=== PATIENT | female | born 1985 | race Caucasian/White ===

== ENCOUNTER 2016-07-25 01:52 | Emergency (ER) | payer OTHER ==
[~2016-07-25] VITALS: Ht 154.9 cm; Wt 82.6 kg
[~2016-07-25 01:52] MED LIST: ADDERALL15 MG PO; AMOXICILLIN875 MG PO; AUGMENTIN875 MG PO; BACTRIM,SEPT1 TABLET PO; BENADRYL50 MG PO; CARAFATE100 MG/ML PO; CEPHALEXIN500 MG PO; CLONAZEPAM0.5 MG PO; CLONIDINE HCL0.1 MG PO; FLUOXETINE HCL20 MG PO; GABAPENTIN100 MG PO; KEFLEX500 MG PO; KLONOPIN1 MG PO; MACROBID100 MG PO; METHADONE10 MG PO; METHADONE10 MG/1 M1 PO; METHADOSE40 MG PO; MOTRIN600 MG PO; MOTRIN800 MG PO; Motrin PO; NAPROSYN500 MG PO; NEURONTIN100 MG PO; NORCO 5/3251 TABLET PO; PAXIL20 MG PO; PEN-VEE K,VEET500 MG PO; PERIDEX1 ML MM; PROMETHAZINE HC25 M1 PO; QUETIAPINE FUM300 MG PO; QUETIAPINE FUMA50 MG PO; SEROQUEL100 MG PO; SEROQUEL300 MG PO; TORADOL10 MG PO; TRAMADOL HCL50 MG PO; TRIPLE ANTIB28.35 GM TP; ULTRAM50 MG PO; ZOFRAN ODT8 MG PO; ZOFRAN4 MG PO; ZOLOFT100 MG PO; ZOLOFT25 MG PO; ZOLPIDEM TARTRAT5 MG PO
[2016-07-25 03:20] LABS: MCH 29.2 PG (29.0-34.0); MCHC 33.6 G/DL (30.0-36.0); MEAN PLAT.VOLUME 11.4 uM^3 (9.5-12.4); PLATELET COUNT 207 K/uL (156-360); RBC DIS.WIDTH-CV 14.7 % (11.8-14.6); RBC DIS.WIDTH-SD 46.6 % (39-53); RED BLOOD COUNT 4.83 M/uL (3.80-5.20); WHITE BLOOD COUNT 9.1 K/uL (4.1-10.2)
[2016-07-25 03:29] LABS: CHLORIDE 107 mEq/L (99-109); SODIUM 143 mEq/L (136-147)
[2016-07-25 03:31] LABS: GLUCOSE 95 mg/dL (70-99)
[2016-07-25 03:32] LABS: ANION GAP 15 MEQ/L (2-14)
[2016-07-25 03:33] LABS: TOTAL BILIRUBIN 0.4 mg/dL (0.0-1.0)
[2016-07-25 03:34] LABS: ALKALINE PHOSPHATASE 95 IU/L (3-129)
[2016-07-25 03:35] LABS: GFR ESTIMATE (CALCULATED) > 59 mL/min/
[2016-07-25 03:36] LABS: UREA NITROGEN (BUN) 9 mg/dL (9-23)
[2016-07-25 03:38] LABS: LIPASE 10 U/L (1.0-51.0)
[2016-07-25 04:04] LABS: INFLUENZA A VIRAL ANTIGEN NEGATIVE; INFLUENZA B VIRAL ANTIGEN NEGATIVE
[2016-07-25 04:54] LABS: ADD MIUA? YES; BILIRUBIN NEGATIVE; BLOOD SMALL; COLOR YELLOW ((YELLOW)); GLUCOSE (STRIP) NEGATIVE; INTERNAL CONTROL VALID? YES; KETONES 15; LEUKOCYTES LARGE; NITRITE NEGATIVE; PROTEIN (STRIP) TRACE; SPECIFIC GRAVITY 1.016 (1.000-1.030); UROBILINOGEN 0.2 MG/DL (0.2-1.0)
[2016-07-25 05:12] LABS: WHITE BLOOD CELLS 30-40 /HPF (0-5)
[2016-07-25 05:13] LABS: BACTERIA 2+; CASTS NONE SEEN /LPF; CRYSTALS NONE SEEN; EPITHELIAL CELLS 3+; MUCUS RARE; UCUL ADDED? YES
[2016-07-25] MEDS ORDERED: CIPRO250 MG PO (05:26)
[2016-07-25] MEDS ORDERED: ZOFRAN8 MG PO (06:08)
[2016-07-25 06:40] VITALS: BP 131/81
== END 2016-07-25 06:55 | disposition home or self-care (01) ==
LOC: EME 01:52
PROVIDERS: Emergency Medicine
PROC: 0HQGXZZ Repair Left Hand Skin, External Approach (ICD-10-PCS; principal; 2016-07-25)
PROC: 3E0234Z Introduction of Serum, Toxoid and Vaccine into Muscle, Percutaneous Approach (ICD-10-PCS; principal; 2016-07-25)
DX: S61.211A Laceration without foreign body of left index finger without damage to nail, initial encounter (principal); N30.91 Cystitis, unspecified with hematuria; R11.2 Nausea with vomiting, unspecified; E87.6 Hypokalemia; X99.1XXA Assault by knife, initial encounter; F33.2 Major depressive disorder, recurrent severe without psychotic features; F60.3 Borderline personality disorder; F11.20 Opioid dependence, uncomplicated; F12.20 Cannabis dependence, uncomplicated; F10.20 Alcohol dependence, uncomplicated; I10 Essential (primary) hypertension; F17.200 Nicotine dependence, unspecified, uncomplicated; Z23 Encounter for immunization
CPT/HCPCS: 71020; 80053; 81003; 83690; 84703; 85027; 87086; 87502; 90839; 99281; 99285

== ENCOUNTER 2016-08-04 09:11 | Emergency (ER) | payer OTHER ==
[~2016-08-04] VITALS: Ht 154.9 cm; Wt 81.3 kg
[~2016-08-04 09:11] MED LIST changes: +CIPRO250 MG PO; +ZOFRAN8 MG PO
[2016-08-04 11:52] LABS: HEMATOCRIT 38.2 % (36.0-46.0); MCH 29.2 PG (29.0-34.0); MCHC 31.7 G/DL (30.0-36.0); MEAN PLAT.VOLUME 11.9 uM^3 (9.5-12.4); PLATELET COUNT 166 K/uL (156-360); RBC DIS.WIDTH-CV 14.9 % (11.8-14.6); RBC DIS.WIDTH-SD 48.9 % (39-53); RED BLOOD COUNT 4.14 M/uL (3.80-5.20); WHITE BLOOD COUNT 11.8 K/uL (4.1-10.2)
[2016-08-04 11:54] LABS: MCV 92.3 FL (83-99)
[2016-08-04 12:02] LABS: CHLORIDE 111 mEq/L (99-109); POTASSIUM 4.6 mEq/L (3.7-5.4); SODIUM 138 mEq/L (136-147)
[2016-08-04 12:04] LABS: GLUCOSE 99 mg/dL (70-99)
[2016-08-04 12:06] LABS: ANION GAP 5 MEQ/L (2-14); TOTAL BILIRUBIN 0.2 mg/dL (0.0-1.0)
[2016-08-04 12:08] LABS: ALKALINE PHOSPHATASE 72 IU/L (3-129); GFR ESTIMATE (CALCULATED) > 59 mL/min/
[2016-08-04 12:09] LABS: UREA NITROGEN (BUN) 14 mg/dL (9-23)
[2016-08-04 12:11] LABS: LIPASE 12 U/L (1.0-51.0)
[2016-08-04] MEDS ORDERED: ZOFRAN ODT4 MG PO (13:42)
[2016-08-04 14:05] VITALS: BP 108/76
== END 2016-08-04 14:06 | disposition home or self-care (01) ==
LOC: EME 09:11
PROVIDERS: Emergency Medicine
DX: B34.9 Viral infection, unspecified (principal); R11.2 Nausea with vomiting, unspecified; F11.23 Opioid dependence with withdrawal; T40.2X5A Adverse effect of other opioids, initial encounter; F17.200 Nicotine dependence, unspecified, uncomplicated
CPT/HCPCS: 80053; 83690; 85027; 99281; 99284; J2405; J7030

== ENCOUNTER 2016-09-29 18:55 | Emergency (ER) | payer OTHER ==
[~2016-09-29] VITALS: Ht 154.9 cm; Wt 80.1 kg
[~2016-09-29 18:55] MED LIST changes: +ZOFRAN ODT4 MG PO
[2016-09-29] MEDS ORDERED: AMOXICILLIN500 M1 PO (20:21)
[2016-09-29] MEDS ORDERED: NORCO 5/3251 TABLET PO (20:21)
[2016-09-29 20:37] VITALS: BP 137/88
== END 2016-09-29 20:38 | disposition home or self-care (01) ==
LOC: EME 18:55
DX: K08.89 Other specified disorders of teeth and supporting structures (principal); F17.200 Nicotine dependence, unspecified, uncomplicated
CPT/HCPCS: 99281; 99283

== ENCOUNTER 2016-11-22 09:34 | Emergency (ER) | payer OTHER ==
[~2016-11-22] VITALS: Ht 154.9 cm; Wt 73.0 kg
[~2016-11-22 09:34] MED LIST changes: +AMOXICILLIN500 M1 PO
[2016-11-22 09:54] VITALS: BP 116/82
[2016-11-22] MEDS ORDERED: AUGMENTIN875 MG PO (11:40)
[2016-11-22] MEDS ORDERED: ZOFRAN4 MG PO (11:40)
[2016-11-22] MEDS ORDERED: MOTRIN800 MG PO (11:40)
== END 2016-11-22 12:16 | disposition home or self-care (01) ==
LOC: EME 09:34
DX: K08.89 Other specified disorders of teeth and supporting structures (principal); R60.9 Edema, unspecified; K02.9 Dental caries, unspecified
CPT/HCPCS: 99281; 99283